=== PATIENT | male | born 1960 | race Two or more races ===

== ENCOUNTER 2020-04-29 15:53 | Outpatient (CLI) | payer OTHER | END 2020-04-29 16:07 | disposition home or self-care (01) | LOC: LAB 15:53 | PROVIDERS: ATTEND Urology | DX: R97.20 Elevated prostate specific antigen [PSA] (principal) ==

== ENCOUNTER 2020-05-04 07:17 | Outpatient (CLI) | payer OTHER | END 2020-05-04 07:21 | disposition home or self-care (01) | LOC: SONOGRAMA 07:17 | PROVIDERS: ATTEND Urology | DX: D29.1 Benign neoplasm of prostate (principal); R97.20 Elevated prostate specific antigen [PSA] ==